=== PATIENT | female | born 1940 | race Caucasian/White ===

== ENCOUNTER 2019-10-06 09:55 | Day surgery (SDC) | payer MEDICARE ==
[~2019-10-06] VITALS: Ht 157.5 cm; Wt 50.7 kg
[~2019-10-06 09:55] MED LIST: ATOR10 PO; ATOR20; CRUTCH USE; Dyazide 37.5-21 EACH PO; OXYACE5T PO; PROP10; PROP120ER PO; TRIA50
[2019-10-06] MEDS ORDERED: ACET500 PO (10:29)
[2019-10-06] MEDS ORDERED: GABA100 PO (10:29)
[2019-10-06] MEDS ORDERED: Citrucel500 MG (10:30)
[2019-10-06] MEDS ORDERED: IBGARD90 MG (10:30)
== END 2019-10-06 11:26 | disposition home or self-care (01) ==
LOC: ORSCSDS 09:55
PROVIDERS: Internal Medicine Gastroenterology
PROC: 0DJD8ZZ Inspection of Lower Intestinal Tract, Via Natural or Artificial Opening Endoscopic (ICD-10-PCS; principal; 2019-10-06 11:15)
DX: R93.89 Abnormal findings on diagnostic imaging of other specified body structures (principal); K57.30 Diverticulosis of large intestine without perforation or abscess without bleeding; I10 Essential (primary) hypertension; Z87.891 Personal history of nicotine dependence; Z79.899 Other long term (current) drug therapy
CPT/HCPCS: J2704; J7120

== ENCOUNTER 2019-11-05 12:17 | Inpatient (IN) | payer MEDICARE ==
[~2019-11-05] VITALS: Ht 157.5 cm; Wt 56.8 kg
[~2019-11-05 12:17] MED LIST changes: +ACET500 PO; +Citrucel500 MG; +GABA100 PO; +IBGARD90 MG
[2019-11-09] MEDS ORDERED: MIRALAX17 GM PO (09:08)
[2019-11-09] MEDS ORDERED: NEOM500 PO (09:16)
[2019-11-09] MEDS ORDERED: Flagyl500 MG PO (09:17)
--- NOTE | 2019-11-10 14:55 | NUR ---
Ambulatory in Day Surgery. Surgical site prepped with 2% Chlorhexidine cloth wipe. History, Chart, Medications and Allergies reviewed before start of procedure. Lungs clear T/O to Auscultation. Patient confirms NPO status and agrees with scheduled surgery. Pre-Op teaching done. Pt verbalizes understanding. Patient reports completing Chlorhexadine shower X2 prior to admission to hospital.
--- NOTE | 2019-11-11 01:27 | NUR ---
PT HYPOTENSIVE WITH MAP <70. CONTINUOUS EPIDURAL RATE DECREASED FROM 8ML/HR TO 6ML/HR. PT REPORTING PAIN 2/10. WILL CTM.
--- NOTE | 2019-11-11 02:59 | NUR ---
PT REMAINS HYPOTENSIVE. HR STABLE. WILL PAUSE EPIDURAL FOR NOW AND RECHECK VS IN 30 MIN.
[2019-11-11 04:16] LABS: BASOPHILS ABSOLUTE AUTO 0.05 K/mm3 (0.00-0.23); BASOPHILS PERCENT AUTO 0 % (0-2); EOSINOPHILS PERCENT AUTO 0 % (0-6); Hematocrit 37.6 % (33.0-51.0); IMMATURE GRAN ABSOLUTE AUTO 0.16 K/mm3 (0.00-0.10); IMMATURE GRAN PERCENT AUTO 1 % (0-1); LYMPHOCYTES ABSOLUTE AUTO 0.73 K/mm3 (0.84-5.20); LYMPHOCYTES PERCENT AUTO 3 % (21-46); MONOCYTES PERCENT AUTO 3 % (4-13); Mean Corpuscular HGB 28.7 pg (26.0-34.0); Mean Corpuscular HGB Conc 31.9 g/dL (31.5-36.5); Mean Corpuscular Volume 90 fL (80-100); Mean Platelet Volume 9.9 fL (9.1-12.4); NEUTROPHILS ABSOLUTE AUTO 26.79 K/mm3 (1.96-9.15); NEUTROPHILS PERCENT AUTO 94 % (41-73); Platelet Count 218 K/mm3 (150-400); RDW Coefficient Variation 13.6 % (11.7-14.2); RDW Standard Deviation 44.9 fL (35.1-46.3); Red Blood Cell Count 4.18 M/mm3 (3.80-5.20); White Blood Cell Count 28.43 K/mm3 (4.00-11.30)
[2019-11-11 04:32] LABS: Anion Gap 9 mmol/L (6-16); Blood Urea Nitrogen 17 mg/dL (8-24); CO2, Blood 24 mmol/L (21-32); Chloride, Blood 107 mmol/L (98-108); Creatinine, Blood 0.77 mg/dL (0.40-1.00); Glomerular Filtration Rate >60 (60-); Glucose, Blood 133 mg/dL (70-99); Potassium, Blood 4.2 mmol/L (3.5-5.5); Sodium, Blood 140 mmol/L (136-145)
--- NOTE | 2019-11-11 04:50 | NUR ---
DR. GUZMAN NOTIFIED OF PT CONDITION. REPORTED THAT PT HAS BEEN HYPOTENSIVE AND THAT EPIDURAL HAD BEEN TURNED OFF AT 0300. PT'S PAIN REMAINS TO BE IN CONTROL. ALSO NOTIFIED DR GUZMAN OF TOTAL URINE OUTPUT OF 200CC AND WBC THIS MORNING OF 28.43. A FLUID BOLUS WAS RECOMMENEDED. NO NEW ORDERS. WILL CTM. PT ASYMPTOMATIC AT THIS TIME.
--- NOTE | 2019-11-11 05:18 | NUR ---
SHIFT SUMMARY: PT POD #1 FOR SIGMOID COLECTOMY. A&O X4. NII WOUND VAC CDI WITH A SCANT AMT OF DRG. PT HYPOTENSIVE WITH EPIDURAL. EPIDURAL TURNED OFF AT APPROX 0300. SBP REMAINS IN 80'S. FLUIDS INFUSING PER ORDERS. TOTAL URINE OUTPUT OF 200CC. PT DENIES ANY S/SX WITH LOW BP. ALL OTHER VS WNL. DR GUZMAN NOTIFIED OF PT CONDITION (SEE OTHER NOTE). TORADOL AND TYLENOL GIVEN AFTER EPIDURAL TURNED OFF. PAIN IS CURRENTLY MANAGED AND PT APPEARS TO BE RESTING COMFORTABLY.
--- NOTE | 2019-11-11 12:00 | NUR ---
ASSUMED CARE ASSUMED CARE OF PATIENT AT THIS TIME. PT A/O AND CONTINUES TO BE HYPOTENSIVE, DOCTOR IS AWARE. WILL CTM. DENIES PAIN OR SOB. NII TO MIDLINE PLACE WITH NO NEW DRAINAGE. EPIDURAL IN PLACE AND INFUSING PER ORDERS. PT CURRENTLY RESTING IN BED WITH CALL LIGHT IN REACH.
--- NOTE | 2019-11-11 17:23 | NUR ---
SHIFT SUMMARY POD 1 SP/ COLECTOMY. NII TO MIDLINE WITH SMALL AMOUNT OF SS DRAINAGED NOTED. EPIDURAL APPEARS IN PLACE AND INFUSING AT 8; REPORTS PAIN AT TOLERABLE LEVEL T/O SHIFT. PEARCE IN PLACE AND DRAINING YELLOW URINE. ABLE TO TOLERATE ICE CHIPS. AMBULATED IN ROOM AND HALLWAY WITH FAMILY COURT REGISTRAR. REPORTS PASSING FLATUS AND DENIES N/V. CURRENTLY RESTING IN BED WITH CALL LIGHT IN REACH. WILL CONT. TO MONITOR AND GIVE REPORT TO ONCOMING RN.
--- NOTE | 2019-11-12 01:20 | NUR ---
PT CALLED TO REPORT WETNESS TO HER MIDSECTION. NURSING FOUND NII DRESSING SATURATED AND BLOOD OOZING FROM UNDER THE DRESSING EDGES. REPLACED DRESSING TO MIDLINE ABDOMEN INCISION CLOSED WITH SARAH WITH WELL APPROXIMATED EDGES. OOZING ORIGIN NOTED MIDDLE STAPLE HOLE. GAUZE APPLIED TO OUTSIDE OF NII DRESSING AND ABD BINDER PLACED TO A COMFORTABLE TENTION. AMBULATED TO BATHROOM AND BACK TO BED, SMALL SLUDGY BM NOTED IN COMMODE. TOLERATED WELL. SAFETY MEASURES IN PLACE. WILL CONTINUE TO MONITOR.
[2019-11-12 04:28] LABS: BASOPHILS ABSOLUTE AUTO 0.03 K/mm3 (0.00-0.23); BASOPHILS PERCENT AUTO 0 % (0-2); EOSINOPHILS ABSOLUTE AUTO 0.02 K/mm3 (0.00-0.68); EOSINOPHILS PERCENT AUTO 0 % (0-6); Hematocrit 31.4 % (33.0-51.0); Hemoglobin 9.8 g/dL (11.5-16.0); IMMATURE GRAN ABSOLUTE AUTO 0.06 K/mm3 (0.00-0.10); IMMATURE GRAN PERCENT AUTO 0 % (0-1); LYMPHOCYTES ABSOLUTE AUTO 1.69 K/mm3 (0.84-5.20); LYMPHOCYTES PERCENT AUTO 11 % (21-46); MONOCYTES ABSOLUTE AUTO 1.11 K/mm3 (0.16-1.47); MONOCYTES PERCENT AUTO 8 % (4-13); Mean Corpuscular HGB 28.7 pg (26.0-34.0); Mean Corpuscular HGB Conc 31.2 g/dL (31.5-36.5); Mean Corpuscular Volume 92 fL (80-100); Mean Platelet Volume 10.2 fL (9.1-12.4); NEUTROPHILS ABSOLUTE AUTO 11.87 K/mm3 (1.96-9.15); NEUTROPHILS PERCENT AUTO 80 % (41-73); Platelet Count 176 K/mm3 (150-400); RDW Standard Deviation 47.3 fL (35.1-46.3); Red Blood Cell Count 3.41 M/mm3 (3.80-5.20); White Blood Cell Count 14.78 K/mm3 (4.00-11.30)
[2019-11-12 04:51] LABS: Anion Gap 4 mmol/L (6-16); Blood Urea Nitrogen 19 mg/dL (8-24); Bun/Creatinine Ratio 21.2 (12.0-20.0); CO2, Blood 28 mmol/L (21-32); Calcium, Blood 8.1 mg/dL (8.5-10.1); Chloride, Blood 108 mmol/L (98-108); Glomerular Filtration Rate >60 (60-); Glucose, Blood 91 mg/dL (70-99); Potassium, Blood 4.1 mmol/L (3.5-5.5); Sodium, Blood 140 mmol/L (136-145)
--- NOTE | 2019-11-12 06:50 | NUR ---
SHIFT SUMMARY RESTING WITH EYES CLOSED WHILE LAYING IN SEMI FOWLERS. HAS GOTTEN OOB AND AMBULATED TO BATHROOM, SMALL BM NOTED IN COMMODE. EPIDURAL IN PLACE, STILL REPORTS FULL SENSATION. DENIES FURTHER NEEDS OR WANTS AT THIS TIME. SAFETY MEASURES IN PLACE. WILL GIVE HAND OFF TO ONCOING SHIFT USING SBAR.
--- NOTE | 2019-11-12 13:05 | NUR ---
Pt. is in bed resting she reports doing fine encouraged pt. and offered prayers .
--- NOTE | 2019-11-12 15:08 | NUR ---
DR KIM IN AND DC'D PT'S EPIDURAL. MEDICATED PER ORDERS FOR 5/10 ABDOMINAL PAIN. CALL LIGHT IN REACH.
--- NOTE | 2019-11-12 17:11 | NUR ---
SUMMARY NO ACUTE CHANGES T/O SHIFT. VSS. TOLERATING FULL LIQUID DIET. HAD TWO SMALL BM'S AMBULATED MULTIPLE TIMES DURING SHIFT AND SAT UP IN CHAIR. EPIDURAL DC'D BY DR KIM AT APPROXIMATELY 1430. MEDICATED PER ORDERS FOR PAIN W/ROXICODONE. PT NOW SLEEPING.
[2019-11-13 04:36] LABS: BASOPHILS ABSOLUTE AUTO 0.05 K/mm3 (0.00-0.23); BASOPHILS PERCENT AUTO 1 % (0-2); EOSINOPHILS ABSOLUTE AUTO 0.13 K/mm3 (0.00-0.68); EOSINOPHILS PERCENT AUTO 1 % (0-6); Hematocrit 33.2 % (33.0-51.0); Hemoglobin 10.2 g/dL (11.5-16.0); IMMATURE GRAN ABSOLUTE AUTO 0.02 K/mm3 (0.00-0.10); IMMATURE GRAN PERCENT AUTO 0 % (0-1); LYMPHOCYTES ABSOLUTE AUTO 1.55 K/mm3 (0.84-5.20); LYMPHOCYTES PERCENT AUTO 15 % (21-46); MONOCYTES ABSOLUTE AUTO 1.12 K/mm3 (0.16-1.47); MONOCYTES PERCENT AUTO 11 % (4-13); Mean Corpuscular HGB 28.4 pg (26.0-34.0); Mean Corpuscular HGB Conc 30.7 g/dL (31.5-36.5); Mean Corpuscular Volume 93 fL (80-100); NEUTROPHILS ABSOLUTE AUTO 7.27 K/mm3 (1.96-9.15); NEUTROPHILS PERCENT AUTO 72 % (41-73); Platelet Count 160 K/mm3 (150-400); RDW Standard Deviation 47.7 fL (35.1-46.3); Red Blood Cell Count 3.59 M/mm3 (3.80-5.20); White Blood Cell Count 10.14 K/mm3 (4.00-11.30)
--- NOTE | 2019-11-13 05:57 | NUR ---
SHIFT SUMMARY RESTING WITH EYES CLOSED WHILE LAYING IN SEMI FOWLERS WITH LEGS ELEVATED DUE TO MILD EDEMA. HAS GOTTEN OOB AND AMBULATED IN HALLWAY. DENIES FURTHER NEEDS OR WANTS AT THIS TIME. SI LOOKING FORWARD TO GOING HOME TODAY. SAFETY MEASURES IN PLACE. WILL GIVE HAND OFF TO ONCOING SHIFT USING SBAR.
--- NOTE | 2019-11-13 06:26 | NUR ---
AMBULATED IN HALLWAY AGAIN, TOLERATED WELL. BACK IN BED WITH SAFETY MEASURES IN PLACE. WILL CONTINUE TO MONITOR.
--- NOTE | 2019-11-13 07:15 | NUR ---
pt reports nausea no emesis pt has hyperactive bt's x4 pt worried about it gave pt a bath blanket to splint abd and emesis bag zofran given will hold full liquid tray and try cl this am sips only
--- NOTE | 2019-11-13 14:37 | NUR ---
DR CASANOVA BY TO SEE PT REQ WE LOOK TO SEE WHAT COLOR HER STOOL IS CL TODAY THEN ADV TO FL SAT
--- NOTE | 2019-11-13 17:38 | NUR ---
OFFERED PO TYLENOL PT DECLINED PT EATING CL NO BM THIS TOMÁS TO LOOK AT COLOR
--- NOTE | 2019-11-14 04:35 | NUR ---
SHIFT SUMMARY POD#4 SIGMOID COLECTOMY. AAOX4. ABD MIDLINE INCISION WITH NII SCANT SS ALONG INCISION, NO INCREASE IN DRAINAGE THIS SHIFT. DISCOMFORT CONTROLLED WITH SCHEDULED TYLENOL. NO NAUSEA/EMESIS. INDEPENDENT IN ROOM. GOOD PO INTAKE + OUTPUT. NO STOOL THIS SHIFT. PT ENCOURAGED TO NOT FLUSH + CALL NURSING STAFF WHEN STOOL IS PRESENT. PT RESTED WELL T/O NIGHT. NADN. CALL LIGHT IN REACH.
--- NOTE | 2019-11-14 13:06 | NUR ---
DISCHARGE PT EDUCATED ON AND RECEIVED PRINTED DC INSTRUCTIONS AND VERBALIZED AN UNDERSTANDING. NO NEW RX. IVS DC'D. PT GETTING DRESSED AND GATHERING ALL PERSONAL BELONGINGS. FAMILY PRESENT TO TAKE PT HOME.
== END 2019-11-14 13:31 | disposition home or self-care (01) | DRG 330 ==
LOC: SURS 11-10 13:27 → PRE IP 11-10 13:30 → SURS 11-10 18:26
PROVIDERS: ADMIT Surgery
PROC: 0DTN4ZZ Resection of Sigmoid Colon, Percutaneous Endoscopic Approach (ICD-10-PCS; principal; 2019-11-10 13:30)
DX: K56.609 Unspecified intestinal obstruction, unspecified as to partial versus complete obstruction (principal); K57.32 Diverticulitis of large intestine without perforation or abscess without bleeding; I10 Essential (primary) hypertension; E78.00 Pure hypercholesterolemia, unspecified; I95.81 Postprocedural hypotension
CPT/HCPCS: 36415; 80048; 85025; 86850; 86900; 86901; 88307; 97110; 97116; 97162; 97530; A9270; J0690; J1100; J1650; J1885; J2250; J2405; J2704; J3010; J7120

== ENCOUNTER → 2020-08-22 | Outpatient (CLI) | payer MEDICARE ==
[~2020-08-22] MED LIST changes: +Flagyl500 MG PO; +MIRALAX17 GM PO; +NEOM500 PO
== END | disposition home or self-care (01) ==
LOC: PLD 10:29 → LAB SHORT 10:29
DX: D22.5 Melanocytic nevi of trunk (principal)
CPT/HCPCS: 88305

== ENCOUNTER 2024-05-16 19:40 | Emergency (ER) | payer MEDICARE ==
[~2024-05-16] VITALS: Ht 157.5 cm; Wt 49.9 kg
[2024-05-16] MEDS ORDERED: Diazepam 5 MG / ML 2ML SYR IV ONE ×2 (20:00→20:35)
[2024-05-16] MEDS ORDERED: Ketorolac Tromethamine 30mg Vial IV ONE (20:00)
[2024-05-16 21:10] VITALS: BP 125/78
== END 2024-05-16 21:58 | disposition home or self-care (01) ==
LOC: ER 19:40
DX: S03.02XA Dislocation of jaw, left side, initial encounter (principal); W22.8XXA Striking against or struck by other objects, initial encounter; Z88.8 Allergy status to other drugs, medicaments and biological substances; Z79.899 Other long term (current) drug therapy; Z87.891 Personal history of nicotine dependence
CPT/HCPCS: 21480; 96374-59; 96375-59; 99283-25; J1885; J3360

== ENCOUNTER → 2024-08-26 | Outpatient (CLI) | payer MEDICARE | LOC: LAB 15:46 → LAB SHORT 15:46 | DX: L08.0 Pyoderma (principal) | CPT/HCPCS: 87070; 87077; 87186; 87205 ==

== ENCOUNTER → 2024-10-07 | Outpatient (CLI) | payer MEDICARE | END | disposition home or self-care (01) | LOC: LAB 13:55 → LAB SHORT 13:55 | DX: L08.0 Pyoderma (principal) | CPT/HCPCS: 87070; 87077; 87186; 87205 ==

== ENCOUNTER 2025-05-23 11:55 | Emergency (ER) | payer MEDICARE ==
[~2025-05-23] VITALS: Ht 157.5 cm; Wt 49.0 kg
[2025-05-23 12:40] LABS: BASOPHILS ABSOLUTE AUTO 0.04 K/mm3 (0.00-0.23); BASOPHILS PERCENT AUTO 1 % (0-2); EOSINOPHILS ABSOLUTE AUTO 0.17 K/mm3 (0.00-0.68); EOSINOPHILS PERCENT AUTO 2 % (0-6); Hematocrit 42.1 % (33.0-51.0); Hemoglobin 13.8 g/dL (11.5-16.0); IMMATURE GRAN ABSOLUTE AUTO 0.01 K/mm3 (0.00-0.10); IMMATURE GRAN PERCENT AUTO 0 % (0-1); LYMPHOCYTES ABSOLUTE AUTO 1.90 K/mm3 (0.84-5.20); LYMPHOCYTES PERCENT AUTO 24 % (21-46); MONOCYTES ABSOLUTE AUTO 0.77 K/mm3 (0.16-1.47); MONOCYTES PERCENT AUTO 10 % (4-13); Mean Corpuscular HGB Conc 32.8 g/dL (31.5-36.5); Mean Corpuscular Volume 92 fL (80-100); NEUTROPHILS ABSOLUTE AUTO 5.00 K/mm3 (1.96-9.15); NEUTROPHILS PERCENT AUTO 63 % (41-73); NRBC ABSOLUTE 0.00 K/mm3 (0.00-0.02); NRBC Auto 0.0 /100 WBC (0.0-0.2); Platelet Count 199 K/mm3 (150-400); RDW Coefficient Variation 12.6 % (11.7-14.2); RDW Standard Deviation 42.5 fL (35.1-46.3)
[2025-05-23 13:14] LABS: Alanine Aminotransfer (ALT/SGP 27.0 U/L (12-78); Albumin, Blood 3.8 g/dL (3.4-5.0); Albumin/Globulin Ratio 1.0 (0.8-1.8); Anion Gap 8.0 mmol/L (3-11); Aspartate Aminotrans (AST/SGOT 28.0 U/L (12-37); Bilirubin, Total 0.7 mg/dL (0.1-1.0); Blood Urea Nitrogen 25.0 mg/dL (8-24); CO2, Blood 32.0 mmol/L (21-32); Calcium, Blood 9.9 mg/dL (8.5-10.1); Chloride, Blood 100.0 mmol/L (98-108); Creatinine, Blood 0.87 mg/dL (0.40-1.00); Globulin, Blood 3.8 g/dL (2.2-4.0); Glucose, Blood 112.0 mg/dL (70-99); Potassium, Blood 4.1 mmol/L (3.5-5.5); Sodium, Blood 136.0 mmol/L (136-145); Total Protein, Blood 7.6 g/dL (6.4-8.2)
[2025-05-23 16:00] VITALS: BP 120/70
== END 2025-05-23 16:14 | disposition home or self-care (01) ==
LOC: ER 11:55
PROVIDERS: Physician Assistant
DX: R07.89 Other chest pain (principal); Z87.891 Personal history of nicotine dependence; Z88.8 Allergy status to other drugs, medicaments and biological substances; Z79.899 Other long term (current) drug therapy
CPT/HCPCS: 71046; 80053; 83690; 84484; 85025; 93005; 93010; 99285-25

== ENCOUNTER 2025-06-12 22:19 | Emergency (ER) | payer MEDICARE ==
[~2025-06-12] VITALS: Ht 157.5 cm; Wt 49.9 kg
[2025-06-12] MEDS ORDERED: Ketorolac Tromethamine 15mg Vial IM ONE (22:45)
[2025-06-12] MEDS ORDERED: Midazolam HCl 1MG / ML 2ML Vial IM ONE (22:55)
[2025-06-12] MEDS ORDERED: Propofol 10mg/ml 20 ml Vial (Procedural) IV SCH (23:55)
[2025-06-13] MEDS ORDERED: NS 1,000 ML IV ONE (00:10)
[2025-06-13] MEDS ORDERED: NS 1,000 ML IV SCH ×2 (00:35)
[2025-06-13 01:35] VITALS: BP 154/62
== END 2025-06-13 02:01 | disposition home or self-care (01) ==
LOC: ER 22:19
DX: S03.01XA Dislocation of jaw, right side, initial encounter (principal); Z88.1 Allergy status to other antibiotic agents; Z79.899 Other long term (current) drug therapy; Z79.2 Long term (current) use of antibiotics; Z90.710 Acquired absence of both cervix and uterus; Z87.891 Personal history of nicotine dependence; Z59.89 Other problems related to housing and economic circumstances; X58.XXXA Exposure to other specified factors, initial encounter
CPT/HCPCS: 21451; 70100; 70110; 96372-59; 99152; 99153; 99283-25; J1885; J2250; J2704; J7030